=== PATIENT | male | born 1955 | race Caucasian/White ===

== ENCOUNTER 2018-10-12 08:17 | Emergency (ER) | payer SELFPAY ==
[2018-10-12] MEDS ORDERED: Lidocaine 1% w/Epinephrine 1:100K 20 ML VIAL ONE (09:14)
== END 2018-10-12 09:28 | disposition home or self-care (01) ==
LOC: ERS 08:17
DX: L72.3 Sebaceous cyst (principal); F17.210 Nicotine dependence, cigarettes, uncomplicated
CPT/HCPCS: 10061; J2001